=== PATIENT | male | born 1965 | race Hispanic/Latino ===

== ENCOUNTER 2017-04-09 13:03 | Emergency (ER) | payer BC ==
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
[2017-04-09 17:03] VITALS: BP 122/77
--- NOTE | 2017-04-09 17:08 | XRay Report ---
FINAL REPORT PROCEDURE: XR TOE(S) 2+V LT TECHNIQUE: Left 5th toe, three views HISTORY: pain x 2 weeks after injury COMPARISON: No prior studies are available for comparison. FINDINGS: There is a fracture through the 5th proximal phalanx, extending to the interphalangeal joint articular surface. No joint dislocation. No radiopaque foreign body. IMPRESSION: Fracture through the 5th proximal phalanx
== END 2017-04-09 17:07 | disposition home or self-care (01) ==
LOC: ED 13:03
DX: S92.512A Displaced fracture of proximal phalanx of left lesser toe(s), initial encounter for closed fracture (principal); E11.9 Type 2 diabetes mellitus without complications; K21.9 Gastro-esophageal reflux disease without esophagitis; G43.909 Migraine, unspecified, not intractable, without status migrainosus; W51.XXXA Accidental striking against or bumped into by another person, initial encounter; Y93.89 Activity, other specified; Y92.89 Other specified places as the place of occurrence of the external cause; Y99.8 Other external cause status
CPT/HCPCS: 99283